=== PATIENT | female | born 1985 ===

== ENCOUNTER 2018-06-28 21:36 | Emergency (ER) | payer BC ==
[~2018-06-28] VITALS: Ht 170.2 cm; Wt 54.4 kg
--- NOTE | 2018-06-28 21:53 | NUR ---
Pt ambulated in ER with stable gait with the c/o flu like symptoms since 06/19/18. Pt states that she has been having a cough, chills, upper body ache for 1.5 weeks. Pt states that today she also started to have headache and nausea. Pt is AAO x 4 and speaking in complete sentences. Pt denies CP, SOB, vomiting and diarrhea. Safe environment implemented.
--- NOTE | 2018-06-28 22:25 | NUR ---
Dr. Stearns at bedside for MSE.
[2018-06-28] MEDS ORDERED: DEXAMETHASONE SOD PHOSPHATE 4 MG INJ IV ONE (22:45)
[2018-06-28] MEDS ORDERED: METOCLOPRAMIDE HCL 10 MG/2 ML VIAL IV ONE (22:45)
[2018-06-28] MEDS ORDERED: KETOROLAC TROMETHAMINE 15 MG INJ IVP ONE (22:45)
[2018-06-28] MEDS ORDERED: IV NORMAL SALINE 1000 ML BAG IV ONE (22:45)
[2018-06-28] MEDS ORDERED: METOCLOPRAMIDE HCL 10 MG/2 ML VIAL ONE (22:49)
[2018-06-28] MEDS ORDERED: KETOROLAC TROMETHAMINE 15 MG INJ ONE (22:49)
[2018-06-28] MEDS ORDERED: DEXAMETHASONE SOD PHOSPHATE 10 MG INJ ONE (22:50)
[2018-06-28 23:13] LABS: BASOPHILS # (AUTO) 0.1 K/uL (0.0-8.0); BASOPHILS % (AUTO) 0.7 % (0.0-2.0); EOSINOPHILS # (AUTO) 0.1 K/uL (0.0-0.7); EOSINOPHILS % (AUTO) 1.2 % (0.0-7.0); HEMATOCRIT 37.1 % (31.2-41.9); HEMOGLOBIN 12.8 g/dL (10.9-14.3); LYMPHOCYTES # (AUTO) 1.9 K/uL (20.0-40.0); LYMPHOCYTES % (AUTO) 20.8 % (20.5-51.5); MEAN CORPUSCULAR HEMOGLOBIN 31.4 uug (24.7-32.8); MEAN CORPUSCULAR HGB CONC 35 g/dL (32.3-35.6); MEAN CORPUSCULAR VOLUME 90.8 fL (75.5-95.3); MONOCYTES # (AUTO) 0.6 K/uL (2.0-10.0); MONOCYTES % (AUTO) 6.9 % (0.0-11.0); NEUTROPHILS # (AUTO) 6.3 K/uL (1.8-8.9); NEUTROPHILS % (AUTO) 70.4 % (38.5-71.5); PLATELET COUNT (AUTO) 281 K/uL (179-408); RED BLOOD CELL COUNT(AUTO) 4.09 MIL/uL (3.63-4.92)
[2018-06-28 23:18] LABS: CREATININE 0.9 mg/dL (0.6-1.3); POTASSIUM 3.5 mmol/L (3.5-5.1)
[2018-06-28 23:24] LABS: BILIRUBIN,DIRECT 0.1 mg/dL (0.0-0.2); BILIRUBIN,TOTAL 0.4 mg/dL (0.2-1.0); TOTAL PROTEIN, SERUM 7.3 g/dL (6.4-8.2)
--- NOTE | 2018-06-28 23:42 | NUR ---
IV removed. Catheter intact and site benign. Pressure and 4x4 gauze applied to site. No bleeding noted. Patient discharged to home in stable conditon. Written and verbal after care instructions given. Patient verbalizes understanding of instructions. Patient ambulated out of ER with stable gait. All belongings taken.
[2018-06-28 23:43] VITALS: BP 110/76
== END 2018-06-28 23:42 | disposition home or self-care (01) ==
LOC: ER 21:38
DX: J45.909 Unspecified asthma, uncomplicated (principal); Z88.1 Allergy status to other antibiotic agents; Z88.8 Allergy status to other drugs, medicaments and biological substances
CPT/HCPCS: 36415; 71045; 80048; 80076; 83605; 84484; 84702; 85025; 85730; 87040 ×2; 87400; 96374; 96375; 99284; J1100; J1885; J2765; 70030-TC; A4663; J7030